=== PATIENT | female | born 1995 | race African-American/Black ===

== ENCOUNTER 2017-05-29 18:50 | Emergency (ER) | payer MEDICAID, OTHER ==
[~2017-05-29] VITALS: Ht 167.6 cm; Wt 110.0 kg
[~2017-05-29 18:50] MED LIST: CEPH500C3 PO; IBUP600 PO; PREN0.01 PO
[2017-05-29 18:58] VITALS: BP 143/74; PULSE 73; RESP 18; TEMP 98.7; O2SAT 99
--- NOTE | 2017-05-29 19:44 | RADRPT ---
EXAM DATE/TIME: 05/29/2017 19:31 [place] COMPARISON: No previous studies available for comparison. INDICATIONS : Patient complains of chest pain in left side of chest and center of chest. MEDICAL HISTORY : None. SURGICAL HISTORY : None. ENCOUNTER: Initial ACUITY: 1 day PAIN SCORE: 5/10 LOCATION: chest FINDINGS: PA and lateral views of the chest demonstrate the lungs to be symmetrically aerated without evidence of mass, infiltrate or effusion. The cardiomediastinal contours are unremarkable. Osseous structure s are intact. CONCLUSION: No evidence of acute cardiopulmonary disease. Neto Fermin MD on May 29, 2017 at 19:42 Board Certified Radiologist. This report was verified electronically.
--- NOTE | 2017-05-29 19:46 | PD ---
HPI . Chest pain Chief Complaint: Chest Pain Time Seen by Provider: 19:27 Travel History International Travel<30 days: No Contact w/Intl Traveler<30days: No Traveled to known affect area: No History of Present Illness HPI Patient presents with chief complaint of chest pain. Onset was approximately lunchtime. She states that she had a pain just left of her sternum which lasted for maybe a minute. The pain recurred about an hour later and lasted about 20 minutes. She states that the pain level was a 5/10 and that it felt like a tightness. She denies any associated symptoms. She denies any modifying factors. Patient reports that she is HIV positive. She is compliant with her antivirals. She states that she will have a checkup done just a couple days ago and her viral load is undetectable. PFSH Past Medical History Medical History: Denies Significant Hx Diminished Hearing: No Tetanus Vaccination: Unknown Influenza Vaccination: Yes ?: Not LMP: 05/10/2017 Past Surgical History Surgical History: No Previous Surgery Social History Alcohol Use: No Tobacco Use: No Substance Use: No Allergies-Medications (Allergen,Severity, Reaction): Coded Allergies: No Known Allergies (Unverified Adverse Reaction, Unknown, 05/29/17) Reported Meds & Prescriptions Reported Meds & Active Scripts Active Keflex (Cephalexin Monohydrate) 500 Mg Cap 500 Mg PO Q8 Motrin 600 Mg Tab (Ibuprofen) 600 Mg Tab 600 Mg PO Q6H PRN Reported Vit ( Plus) (Prenat Multivit/[place]/Iron/Folic Ac) Tab 1 Tab PO DAILY Review of Systems Except as stated in HPI: all other systems reviewed are Neg General / Constitutional: No: Fever, Chills Cardiovascular: Positive: Chest Pain or Discomfort Respiratory: No: Cough, Shortness of Breath Physical Exam Narrative GENERAL: Awake and alert and in no distress. SKIN: warm/dry. HEAD: Normocephalic. Atraumatic. EYES: Pupils equal and round. No scleral icterus. No injection or drainage. ENT: No nasal bleeding or discharge. Mucous membranes pink and moist. NECK: Trachea midline. Full range of motion without pain.. CARDIOVASCULAR: Regular rate and rhythm. Heart sounds are normal. RESPIRATORY: No accessory muscle use. Clear to auscultation. Breath sounds equal bilaterally. MUSCULOSKELETAL: No obvious deformities. NEUROLOGICAL: Awake and alert. No obvious cranial nerve deficits. Motor grossly within normal limits. Normal speech. PSYCHIATRIC: Appropriate mood and affect; insight and judgment normal. Data Data Last Documented VS Vital Signs Date Time Temp Pulse Resp B/P (MAP) Pulse Ox O2 Delivery O2 Flow Rate FiO2 05/29/17 19:56 69 14 100 Room Air 05/29/17 19:56 119/74 (89) 05/29/17 18:58 98.7 Orders Orders Electrocardiogram (05/29/17 19:02) Complete Blood Count With Diff (05/29/17 19:02) Basic Metabolic Panel (Bmp) (05/29/17 19:02) Ckmb (Isoenzyme) Profile (05/29/17 19:02) Troponin I (05/29/17:02) Iv Access Insert/Monitor (05/29/17:) Ecg Monitoring (05/29/17 19:02) Oxygen Administration (05/29/17:02) Oximetry (05/29/17 19:02) Chest, Pa & Lat (05/29/17 19:02) CKMB (05/29/17 19:50) CKMB% (05/29/17 19:50) Labs Laboratory Tests Test 05/29/17 19:50 White Blood Count 6.8 TH/MM3 Red Blood Count 4.58 MIL/MM3 Hemoglobin 10.1 GM/DL Hematocrit 31.7 % Mean Corpuscular Volume 69.3 FL Mean Corpuscular Hemoglobin 22.0 PG Mean Corpuscular Hemoglobin Concent 31.7 % Red Cell Distribution Width 17.4 % Platelet Count 204 TH/MM3 Mean Platelet Volume 9.3 FL Neutrophils (%) (Auto) 62.1 % Lymphocytes (%) (Auto) 29.9 % Monocytes (%) (Auto) 7.4 % Eosinophils (%) (Auto) 0.2 % Basophils (%) (Auto) 0.4 % Neutrophils # (Auto) 4.2 TH/MM3 Lymphocytes # (Auto) 2.0 TH/MM3 Monocytes # (Auto) 0.5 TH/MM3 Eosinophils # (Auto) 0.0 TH/MM3 Basophils # (Auto) 0.0 TH/MM3 CBC Comment DIFF FINAL Differential Comment Blood Urea Nitrogen 11 MG/DL Creatinine 0.71 MG/DL Random Glucose 80 MG/DL Calcium Level 8.9 MG/DL Sodium Level 137 MEQ/L Potassium Level 3.8 MEQ/L Chloride Level 105 MEQ/L Carbon Dioxide Level 25.4 MEQ/L Anion Gap 7 MEQ/L Estimat Glomerular Filtration Rate 125 ML/MIN Total Creatine Kinase 345 U/L Troponin I LESS THAN 0.02 NG/ML MDM Medical Decision Making Medical Screen Exam Complete: Yes Emergency Medical Condition: Yes Interpretation(s) EKG shows a normal sinus rhythm with no acute ischemic changes. Differential Diagnosis Differential diagnosis of chest pain includes but is not limited to musculoskeletal pain, pulmonary embolism, acute coronary syndrome, pneumonia, pleurisy Narrative Course This patient presents for the evaluation of chest pain. She is pain-free currently. She had 2 episodes of chest pain earlier today. One episode lasted 1 minute and the second episode lasted 20 minutes. CBC & BMP Diagram 05/29/17 19:50 Calcium Level 8.9 trop < 0.02 Last Impressions Chest X-Ray 05/29/17 1902 Signed Impressions: Service Date/Time: Monday, May 29, 2017 19:31 - CONCLUSION: No evidence of acute cardiopulmonary disease. Neto Fermin MD No significant etiology for chest pain has been discovered. This patient had chest pain that was very brief and had resolved prior to presentation. She is stable for discharge to home. Diagnosis Primary Impression: Chest pain Qualified Codes: R07.9 - Chest pain, unspecified Patient Instructions: Chest Pain (DC), General Instructions Disposition: 01 DISCHARGE HOME Condition: Stable Maci Hamilton MD May 29, 2017 19:46
[2017-05-29 19:56] VITALS: BP 119/74; PULSE 69; RESP 14; O2SAT 100
[2017-05-29 20:03] LABS: AUTOMATED NEUTROPHIL # 4.2 TH/MM3 (1.8-7.7); BASOPHIL % 0.4 % (0.0-2.0); EOSINOPHIL % 0.2 % (0.0-4.0); HEMATOCRIT 31.7 % (35.0-46.0); HEMOGLOBIN 10.1 GM/DL (11.6-15.3); LYMPH % 29.9 % (9.0-44.0); MEAN CELL VOLUME 69.3 FL (80.0-100.0); MEAN CORPUSCULAR HGB CONC 31.7 % (32.0-36.0); MEAN PLATELET VOLUME 9.3 FL (7.0-11.0); MONO % 7.4 % (0.0-8.0); MONOCYTE # 0.5 TH/MM3 (0-0.9); NEUT % 62.1 % (16.0-70.0); PLATELET COUNT 204 TH/MM3 (150-450); RED BLOOD COUNT 4.58 MIL/MM3 (4.00-5.30); RED CELL DISTRIBUTION WIDTH 17.4 % (11.6-17.2); WHITE BLOOD COUNT 6.8 TH/MM3 (4.0-11.0)
[2017-05-29 20:19] LABS: BICARBONATE 25.4 MEQ/L (21.0-32.0); BLOOD UREA NITROGEN 11 MG/DL (7-18); CALCIUM 8.9 MG/DL (8.5-10.1); CHLORIDE 105 MEQ/L (98-107); CREATININE 0.71 MG/DL (0.50-1.00); GLOMERULAR FILTRATION RATE 125 ML/MIN (>89); GLUCOSE,RANDOM 80 MG/DL (74-106); SODIUM (NA) 137 MEQ/L (136-145)
[2017-05-29 20:24] LABS: TROPONIN I LESS THAN 0.02 NG/ML (0.02-0.05)
--- NOTE | 2017-05-30 14:22 | EKG ---
Date Performed: 05/29/2017 Time Performed: 19:06:24 PTAGE: 22 years EKG: Sinus rhythm POSSIBLE RIGHT VENTRICULAR CONDUCTION DELAY VOLTAGE CRITERIA FOR LVH NONSPECIFIC T-WAVE ABNORMALITY ABNORMAL ECG NO PREVIOUS TRACING DOCTOR: Carmita Aggarwal Interpretating Date/Time 05/30/2017 14:20:37
== END 2017-05-29 20:48 | disposition home or self-care (01) ==
LOC: NEPE 18:50
DX: R07.9 Chest pain, unspecified (principal); Z21 Asymptomatic human immunodeficiency virus [HIV] infection status
CPT/HCPCS: 71046; 80048; 82550; 82552; 84484; 85025; 93005